=== PATIENT | female | born 1990 | race Caucasian/White ===

== ENCOUNTER 2016-10-13 06:11 | Emergency (ER) | payer OTHER, MEDICARE ==
[~2016-10-13] VITALS: Ht 160 cm; Wt 50.0 kg
[~2016-10-13 06:11] MED LIST: AMLO5TAB2 PO; CALC667C PO; ERGO500017 PO; HYDR-3138 PO; HYDR-3342 PO; LISI-167 PO; SULF1TAB24 PO
[2016-10-13] MEDS ORDERED: LISI5TAB7 PO (06:32)
[2016-10-13] MEDS ORDERED: RANI-276 PO (06:33)
[2016-10-13] MEDS ORDERED: SODIUM CHLORIDE 0.9% 1,000ML IVBOLUS ONE (07:30)
[2016-10-13] MEDS ORDERED: SODIUM CHLORIDE FLUSH 10ML SYR IVF ONE (07:30)
[2016-10-13] MEDS ORDERED: ONDANSETRON 2MG/ML, 2ML IVPush ONE (07:30)
[2016-10-13 07:48] LABS: HEMOGLOBIN 10.8 g/dL (11.7-16.4)
[2016-10-13 07:52] LABS: ASPARTATE AMINO TRANSFERASE 9 U/L (15-37); BLOOD UREA NITROGEN 76 mg/dL (7-18)
[2016-10-13 10:24] LABS: PATH.CAST-FLAG NOT PRESENT; SPERM-FLAG NOT PRESENT; SRC-FLAG NOT PRESENT; XTAL-FLAG NOT PRESENT; YLC-FLAG NOT PRESENT
[2016-10-13] MEDS ORDERED: CEFTRIAXONE PMX 1GM/50ML 50 ML IVPB ONE (11:30)
[2016-10-13] MEDS ORDERED: CEFTRIAXONE PMX 1GM/50ML 50 ML ONE (11:38)
[2016-10-13 11:50] LABS: CELLS COUNTED 80; WBC SQUARES COUNTED 9
[2016-10-13 11:51] LABS: DILUTION 1
[2016-10-13 13:02] VITALS: BP 100/58
== END 2016-10-13 13:13 | disposition home or self-care (01) ==
LOC: ED 07:47
DX: N30.00 Acute cystitis without hematuria (principal); I12.9 Hypertensive chronic kidney disease with stage 1 through stage 4 chronic kidney disease, or unspecified chronic kidney disease; N18.9 Chronic kidney disease, unspecified
CPT/HCPCS: 36415; 80053; 81001; 83605; 85025; 87040; 87077; 87086; 87186; 89051; 96361; 96365; 96375; 99285; J0696; J2405; J7030